=== PATIENT | female | born 1970 | race Caucasian/White ===

== ENCOUNTER 2016-08-23 15:04 | Emergency (ER) | payer BC ==
[2016-08-23 15:52] VITALS: BP 159/73
[2016-08-23] MEDS ORDERED: Ketorolac 60 MG/2 ML SDV IM ONE (16:36)
[2016-08-23] MEDS ORDERED: Acetaminophen 325 MG Tab PO ONE (16:36)
[2016-08-23] MEDS ORDERED: Lidocaine 1% 50 ML MDV INJECT ONE (16:57)
--- NOTE | 2016-08-23 17:52 | EDM.PDOC ---
ED HPI GENERAL MEDICAL PROBLEM - General Chief Complaint: Skin Complaint Stated Complaint: ABSCESS ON THIGH Time Seen by Provider: 08/23/16 16:25 Source of Information: Reports: Patient, RN Notes Reviewed - History of Present Illness INITIAL COMMENTS - FREE TEXT/NARRATIVE: Patient presents with abscess right groin. This started 3-4 days ago. Area of erythema and swelling has been increasing along with increased discomfort. She did have some slight drainage earlier today but nothing significant she has had other "cysts or abscess" drain other areas in the past. She is not diabetic. No fever or chills Right Groin Pain Score (Numeric/FACES): 6 - Related Data Allergies Allergy/AdvReac Type Severity Reaction Status Date / Time Sulfa (Sulfonamide Allergy Severe Swelling Verified 08/23/16 15:47 Antibiotics) amoxicillin [Amoxicillin] Allergy Intermediate Rash Verified 08/23/16 15:47 ciprofloxacin Allergy Intermediate Rash Verified 08/23/16 15:47 Home Meds: Home Meds Nitrofurantoin Monohyd/M-Cryst [Macrobid 100 mg Capsule] 100 mg PO BID #13 capsule 11/07/15 [Rx] Ondansetron [Zofran ODT] 4 mg PO Q8H #8 tab.dis 11/07/15 [Rx] Past Medical History HEENT History: Reports: Impaired Vision Respiratory History: Reports: Sleep Apnea Genitourinary History: Reports: UTI, Recurrent, Other (See Below) Other Genitourinary History: cysts on kidneys Musculoskeletal History: Reports: Arthritis Other Musculoskeletal History: Patient states she has some type of joint pain Dermatologic History: Reports: Other (See Below) Other Dermatologic History: abscesses - Infectious Disease History Infectious Disease History: Reports: Mumps - Past Surgical History HEENT Surgical History: Reports: None GI Surgical History: Reports: Cholecystectomy Musculoskeletal Surgical History: Reports: Carpal Tunnel Social & Family History - Family History Family Medical History: Noncontributory - Tobacco Use Smoking Status *Q: Never Smoker Second Hand Smoke Exposure: No - Caffeine Use Caffeine Use: Reports: Soda - Alcohol Use Days Per Week of Alcohol Use: 0 - Recreational Drug Use Recreational Drug Use: No - Living Situation & Occupation Living situation: Reports: , with Spouse Occupation: Employed ED ROS GENERAL - Review of Systems Review Of Systems: See Below Constitutional: Denies: Fever, Chills HEENT: Reports: No Symptoms Respiratory: Reports: No Symptoms Cardiovascular: Reports: No Symptoms GI/Abdominal: Denies: Nausea, Vomiting Skin: Reports: Erythema (area of developing abcess R groin) Neurological: Denies: Numbness, Tingling ED EXAM, SKIN/RASH Exam: See Below General Appearance: Alert, No Apparent Distress Respiratory/Chest: No Respiratory Distress Cardiovascular: Regular Rate, Rhythm Extremities: Redness (small abcess developing R groing about, 3 cm, starting to come to a head center of abcess, no active drainage). No: Leg Pain Neurological: Alert, No Motor/Sensory Deficits Skin: Warm, Normal Color, Other (skin is otherwise clear) ED SKIN PROCEDURES - I&D Site: R groin Skin prep: Providone-Iodine (Betadine) Local anesthesia: Lidocaine: 1% Plain Area Incised With: 11 Blade Drainage: Purulent, Small Amount Sterile Dressinx4(s) Complications: No Course - Vital Signs Last Recorded V/S: Last Vital Signs Temp 98.2 F 08/23/16 15:48 Pulse 84 08/23/16 15:48 Resp 14 08/23/16 15:48 BP 159/73 H 08/23/16 15:48 Pulse Ox 97 08/23/16 15:48 - Orders/Labs/Meds Meds: Medications Discontinued Medications Generic Name Dose Route Start Last Admin Trade Name Sergei PRMathew Reason Stop Dose Admin Acetaminophen 975 mg 08/23/16 16:36 08/23/16 16:49 Tylenol PO 08/23/16 16:37 975 mg NOW ONE Administration Ketorolac Tromethamine 60 mg 08/23/16 16:36 08/23/16 16:51 Toradol IM 08/23/16 16:37 60 mg ONETIME ONE Administration Lidocaine HCl 50 ml 08/23/16 16:57 08/23/16 17:04 Xylocaine 1% INJECT 08/23/16 16:58 50 ml ONETIME ONE Administration Departure - Departure Time of Disposition: 17:50 Disposition: Home, Self-Care 01 Condition: fair Clinical Impression: Abscess - Discharge Information Instructions: Abscess Referrals: Jennyfer Mcgee [employer] [Primary Care Provider] - Forms: ED Department Discharge Additional Instructions: Warm compresses at least 4 times daily to area of abscess right groin, doxycycline antibiotic as prescribed, if this closes over and looks like it needs further drainage go ahead and open it carefully with a razor blade if you' re comfortable doing that or otherwise see medical provider as needed, this should gradually get better over the next 3-5 days, see medical provider in followup if symptoms worsening, especially at the area of redness seems to be spreading out over a much larger area, or if you start having fever, chills or otherwise becoming more ill
== END 2016-08-23 18:20 | disposition home or self-care (01) ==
LOC: JD.ED 15:04
DX: L02.214 Cutaneous abscess of groin (principal); Z90.49 Acquired absence of other specified parts of digestive tract; Z98.890 Other specified postprocedural states; Z88.1 Allergy status to other antibiotic agents; Z88.2 Allergy status to sulfonamides
CPT/HCPCS: 10060; 96372; 99283; A9270; J1885

== ENCOUNTER 2018-06-05 04:24 | Emergency (ER) | payer BC ==
[2018-06-05 04:36] VITALS: BP 159/88
--- NOTE | 2018-06-05 04:43 | EDM.PDOC ---
ED HPI GENERAL MEDICAL PROBLEM - General Chief Complaint: Respiratory Problem Stated Complaint: CONGESTION/SOB Time Seen by Provider: 06/05/18 04:42 Source of Information: Reports: Patient History Limitations: Reports: No Limitations - History of Present Illness INITIAL COMMENTS - FREE TEXT/NARRATIVE: 48-year-old female presents the ED due to awakening from sleep with severe dyspnea or choking sensation like she could not get her breath. Illness started Wednesday while at work. On she had diffuse aching and development of productive cough. She is aware of some nasal congestion and postnasal drip as well. Throat was been very sore for the last 3-4 days. Intermittent low-grade fever and chills. She did have a flu shot this year. Appetite has been very poor the last couple of days. Take Wednesday off of work and has rested for the last 2 days. O2 sats are 99% on room air. She is in no respiratory distress at present. Onset: Today Onset Date: 06/05/18 Onset Time: 04:00 Duration: Minutes: Location: Reports: Chest (Does have a paroxysmal cough.), Generalized ( Generalized myalgia. Hot and cold sensations.), Other (Very sore throat.) Quality: Reports: Other Severity: Moderate (Throat is sharp stabbing burning pain with swallowing) Improves with: Reports: Medication (Excedrin seems to work the best for pain control.) Worsens with: Reports: None Context: Denies: Activity, Exercise, Lifting, Sick Contact, Trauma, Other Associated Symptoms: Reports: Cough, cough w sputum, Diaphoresis, Fever/Chills, Loss of Appetite, Shortness of Breath, Other (Awoke with choking sensation in her throat I believe due to postnasal drip.). Denies: No Other Symptoms, Confusion, Chest Pain, Headaches, Malaise, Nausea/Vomiting, Rash, Seizure, Syncope Treatments [employer]ER: Reports: Other (see below) Throat Pain Score (Numeric/FACES): 8 - Related Data Allergies Allergy/AdvReac Type Severity Reaction Status Date / Time Sulfa (Sulfonamide Allergy Severe Swelling Verified 06/05/18 04:32 Antibiotics) amoxicillin [Amoxicillin] Allergy Intermediate Rash Verified 06/05/18 04:32 ciprofloxacin Allergy Intermediate Rash Verified 06/05/18 04:32 Home Meds: Home Meds Cholecalciferol (Vitamin D3) [Vitamin D3] 1,000 unit PO DAILY 06/05/18 [History] Colestipol [Colestipol HCl] 1 gm PO DAILY 06/05/18 [History] Hydrocodone/Chlorphen P-Stirex [Tussionex Pennkinetic Susp] 5 ml PO Q12H PRN # 60 ml 06/05/18 [Rx] Hydroxychloroquine Sulfate [Plaquenil] 200 mg PO DAILY 06/05/18 [History] Ibuprofen 200 mg PO ONCALL PRN 06/05/18 [History] Loratadine/Pseudoephedrine [Claritin-D 24 Hour Tablet] 1 each PO DAILY #5 tab.er.24h 06/05/18 [Rx] Mirabegron [Myrbetriq] 25 mg PO DAILY 06/05/18 [History] Past Medical History HEENT History: Reports: Impaired Vision Respiratory History: Reports: Sleep Apnea Gastrointestinal History: Reports: Inflammatory Bowel Disease Genitourinary History: Reports: UTI, Recurrent, Other (See Below) Other Genitourinary History: cysts on kidneys Musculoskeletal History: Reports: Arthritis Other Musculoskeletal History: Patient states she has some type of joint pain Dermatologic History: Reports: Other (See Below) Other Dermatologic History: abscesses - Infectious Disease History Infectious Disease History: Reports: Mumps - Past Surgical History HEENT Surgical History: Reports: None GI Surgical History: Reports: Cholecystectomy Musculoskeletal Surgical History: Reports: Carpal Tunnel Social & Family History - Family History Family Medical History: Noncontributory - Tobacco Use Smoking Status *Q: Never Smoker - Caffeine Use Caffeine Use: Reports: Soda - Recreational Drug Use Recreational Drug Use: No - Living Situation & Occupation Living situation: Reports: , with Spouse Occupation: Employed [facility] [employer] GENERAL - Review of Systems Review Of Systems: See Below Constitutional: Reports: Fever, Chills, Malaise, Weakness, Fatigue, Decreased Appetite, Weight Loss HEENT: Reports: Glasses, Throat Pain Respiratory: Reports: Shortness of Breath, Cough, Sputum. Denies: Wheezing, Pleuritic Chest Pain, Hemoptysis, Other (Sputum mostly pinkish in color) Cardiovascular: Reports: Chest Pain (From coughing so much.), Dyspnea on Exertion. Denies: Blood Pressure Problem, Claudication (Blood pressure is elevated at present 160/88.), Edema, Lightheadedness, Orthopnea Endocrine: Reports: Fatigue GI/Abdominal: Reports: Decreased Appetite : Reports: No Symptoms Musculoskeletal: Reports: Muscle Pain Skin: Reports: No Symptoms Neurological: Reports: Dizziness, Weakness. Denies: Headache, Paresthesia, Pre- Existing Deficit, Seizure, Syncope, Tremors, Trouble Speaking, Difficulty Walking Psychiatric: Reports: No Symptoms Hematologic/Lymphatic: Reports: No Symptoms Immunologic: Reports: No Symptoms ED EXAM, GENERAL - Physical Exam Exam: See Below Exam Limited By: No Limitations General Appearance: Alert, WD/WN, No Apparent Distress, Other (She does feel quite warm to palpation and her shirt is soaked with sweat.) Eye Exam: Bilateral Eye: Normal Inspection Ears: Normal TMs Nose: Nasal Drainage Throat/Mouth: Normal Inspection, Normal Lips, Normal Teeth, Normal Oropharynx Head: Atraumatic, Normocephalic Neck: Normal Inspection, Supple, Non-Tender, Full Range of Motion. No: Lymphadenopathy (L), Lymphadenopathy (R) Respiratory/Chest: Lungs Clear, Normal Breath Sounds, Chest Non-Tender, Other ( Does have a mildly productive sounding cough.) Cardiovascular: Normal Peripheral Pulses, Regular Rate, Rhythm, No Edema, No Gallop, No Murmur, No Rub Peripheral Pulses: 3+: Posterior Tibial (L), Posterior Tibial (R), Dorsalis Pedis (L), Dorsalis Pedis (R) GI/Abdominal: Normal Bowel Sounds, Soft, Non-Tender, No Organomegaly, No Abnormal Bruit, No Mass, Pelvis Stable Extremities: Normal Inspection, Normal Range of Motion, Non-Tender, No Pedal Edema Neurological: Alert, Oriented, CN II-XII Intact, Normal Cognition Psychiatric: Normal Affect, Normal Mood Skin Exam: Warm, Dry, Intact, Normal Color, No Rash Course - Vital Signs Last Recorded V/S: Last Vital Signs Temp 36.5 C 06/05/18 04:33 Pulse 94 06/05/18 04:33 Resp 18 06/05/18 04:33 BP 159/88 H 06/05/18 04:33 Pulse Ox 96 06/05/18 05:05 - Orders/Labs/Meds Orders: Active Orders 24 hr Category Date Time Status RT Aerosol Therapy [RC] ASDIRECTED Care 06/05/18 04:50 Active Chest 1V Frontal [CR] Stat Exams 06/05/18 04:49 Taken Meds: Medications Discontinued Medications Generic Name Dose Route Start Last Admin Trade Name Sergei PRN Reason Stop Dose Admin Acetaminophen 975 mg 06/05/18 04:50 06/05/18 04:58 Tylenol PO 06/05/18 04:51 975 mg NOW ONE Administration Albuterol/Ipratropium 3 ml 06/05/18 04:50 06/05/18 05:01 Duoneb 3.0-0.5 Mg/3 Ml NEB 06/05/18 04:51 3 ml ONETIME ONE Administration - Radiology Interpretation Free Text/Narrative:: 48-year-old female presents the ED after wakening from sleep with a sudden feeling like she could not get her breath a choking sensation. She's been ill with upper respiratory tract infection symptoms with very sore throat some nasal congestion and postnasal drip as well as development of a paroxysmal productive cough. Mild generalized myalgia. No significant headache. Decreased appetite. Therefore she has some of the signs and symptoms of influenza. She did have an influenza shot. Good air entry to both lung alvarado. Throat although very sore shows no evidence of marked erythema or exudate. She does have a bit of a postnasal drip. Plan influenza screen one view chest x-ray to be done Tylenol 975 mg by mouth and DuoNeb to be given. - Re-Assessments/Exams Free Text/Narrative Re-Assessment/Exam: 06/05/18 06:00: Chest x-ray done portably shows no signs of pneumonia. Influenza screen is positive for the type A virus. Patient advised. She will be off work until next week since she is contagious to others for up to week from the time she developed symptoms. I have placed her Arnie on prophylaxis Tamiflu 75 mg once daily. She is outside the therapeutic window for Tamiflu and will have to get through this on her own. She has nearly 4 days into her illness at this time. Prescription written for Claritin-D 24-hour release once daily every morning for the next 5 days to help with postnasal drip and sinus congestion. After will be Tussionex 5 mils every 12 hours as needed for cough relief. 60 mils provided. She will continue Tylenol or Motrin 600 mg every 6 hours for fever and for body aches. Departure - Departure Time of Disposition: 06:11 Disposition: Home, Self-Care 01 Condition: Fair Clinical Impression: Influenza A, Postnasal drip - Discharge Information *PRESCRIPTION DRUG MONITORING PROGRAM REVIEWED*: Not Applicable *COPY OF PRESCRIPTION DRUG MONITORING REPORT IN PATIENT DIANA: Not Applicable Prescriptions: Hydrocodone/Chlorphen P-Stirex [Tussionex Pennkinetic Susp] 5 ml PO Q12H PRN # 60 ml PRN Reason: cough relief Loratadine/Pseudoephedrine [Claritin-D 24 Hour Tablet] 1 each PO DAILY #5 tab.er.24h Instructions: Influenza, Adult, [id number] Referrals: Usha Fletcher [facility] [Primary Care Provider] - Forms: ED Department Discharge, ED Return to Work/School Form Additional Instructions: Evaluation the emergency room this morning in regards to awakening from sleep with difficulty breathing. By history it sounds like he went into laryngospasm which means fluid was trying to get down into your airway and the larynx went into spasm to protected. By history you have been ill for the last 4 days paroxysmal cough decreased appetite. Associated very sore throat. This has been an issue with some patients with influenza A. Patient of the throat showed a bit of a postnasal drip but no active infection in the throat itself. Rest x- ray reveals no sign of pneumonia. You did test positive for influenza A type virus. Since infection started on you are outside the treatment parameters for Tamiflu. Influenza A will usually last about 4-1/2 days in terms of fever bodyaches headache. Cough can last up to 14 days. I suspect she will improve by tomorrow night with improved appetite etc. His proposed treatment to be Claritin-D 24-Hour release once daily every morning for the next 5 days to help with postnasal drip. Ideally should be taken first thing in the morning. If you can pick it up at 12:00 today I would take one right away. May use cough syrup Tussionex 5 mils every 12 hours as needed for cough relief. Plan on taking about an hour before going to bed as it takes an hour to work. You're considered contagious to others for a week from the time you develop symptoms. This means you should be off work until this coming week. - My Orders Last 24 Hours: My Active Orders 06/05/18 04:49 Chest 1V Frontal [CR] Stat 06/05/18 04:50 RT Aerosol Therapy [RC] ASDIRECTED - Assessment/Plan Last 24 Hours: My Active Orders 06/05/18 04:49 Chest 1V Frontal [CR] Stat 06/05/18 04:50 RT Aerosol Therapy [RC] ASDIRECTED
[2018-06-05] MEDS ORDERED: Acetaminophen 325 MG Tab PO ONE (04:50)
[2018-06-05] MEDS ORDERED: Albuterol/Ipratropium 3.0-0.5 MG/3 ML Neb Soln NEB ONE (04:50)
--- NOTE | 2018-06-05 07:08 | CR ---
Chest: Portable view of the chest was obtained. Comparison: Prior chest x-ray of 01/29/11. Heart size and mediastinum are normal. Lungs are clear with no acute parenchymal change. Surgical clips are noted from prior cholecystectomy. Impression: 1. Nothing acute is appreciated on portable chest x-ray. Diagnostic code #1
== END 2018-06-05 06:32 | disposition home or self-care (01) ==
LOC: JD.ED 04:24
DX: J10.1 Influenza due to other identified influenza virus with other respiratory manifestations (principal); R09.82 Postnasal drip; Z88.2 Allergy status to sulfonamides; Z88.1 Allergy status to other antibiotic agents; Z79.899 Other long term (current) drug therapy
CPT/HCPCS: 71045; 87804; 94640; 99284; A9270; 99283; J7620-GY

== ENCOUNTER 2018-11-24 15:40 | Emergency (ER) | payer BC ==
[2018-11-24 15:53] VITALS: BP 157/92
[2018-11-24] MEDS ORDERED: LORazepam 2 MG/ML SDV IVPUSH ONE (16:42)
[2018-11-24] MEDS ORDERED: Sodium Chloride 0.9% 1,000 ML IV SCH (16:45)
[2018-11-24] MEDS ORDERED: Ketorolac 30 MG/ML SDV IVPUSH SCH (16:45)
--- NOTE | 2018-11-24 16:46 | EDM.PDOC ---
ED HPI GENERAL MEDICAL PROBLEM - General Chief Complaint: Cardiovascular Problem Stated Complaint: CHEST PAIN Time Seen by Provider: 11/24/18 16:41 Source of Information: Reports: Patient History Limitations: Reports: No Limitations - History of Present Illness INITIAL COMMENTS - FREE TEXT/NARRATIVE: 48-year-old female presents to the ED with diffuse pain in her upper back neck pain now radiating to the left side of her jaw intermittently and down her left arm particular medial aspect of the arm and proximal volar forearm. He's had pains like this in the past but never into her jaw. She's been struggling with diffuse muscular skeletal pain in her back and perhaps some Tums and her anterior chest for the last several months. She was seen by the chiropractor today who felt that he didn't find anything that needed to be significantly adjusted. Concern about her heart and suggested that she seek local care. He has had previous cardiac workups which did not use the yield any positive findings. Pain comes and goes and is very sharp and stabbing and seems to be more muscular skeletal spasm. This of course is creating some degree of anxiety as well. Patient takes Motrin or Advil when necessary for musculoskeletal pain. Onset: Other (Has been having intermittent problems with her back neck and chest off and on for the last couple of months. Today after chiropractic minute ablation develop more pain in her left jaw and rating down her left arm which was new for her. He advised her to seek a medical consultation. Pain is intermittent sharp stabbing and appears to be spastic in origin.) Onset Date: 11/24/18 (Pain left jaw left arm today. Pain in her back neck and chest wall for several months off and on.) Duration: Hour(s):, Getting Worse, Intermittent, Waxing/Waning Location: Reports: Chest (Left precordial chest pain.), Upper Extremity, Left ( Some pain lately rating into her left medial arm and proximal volar forearm. Pain in her left upper back and neck.) Quality: Reports: Ache, Sharp (Intermittent sharp stabbing and spastic.), Stabbing, Other Severity: Moderate Improves with: Reports: None (Sometimes 8 out of 10.) Worsens with: Reports: None Context: Denies: Activity, Exercise, Lifting, Sick Contact, Trauma, Other Associated Symptoms: Reports: Chest Pain. Denies: No Other Symptoms, Confusion (Left precordial chest pain comes and goes), Cough, cough w sputum, Diaphoresis , Fever/Chills, Headaches, Loss of Appetite, Malaise, Nausea/Vomiting, Rash, Seizure, Shortness of Breath, Syncope, Weakness Treatments [employer]: Reports: NSAIDS (Advil.) Bilateral Upper Back Pain Score (Numeric/FACES): 8 - Related Data Allergies Allergy/AdvReac Type Severity Reaction Status Date / Time Sulfa (Sulfonamide Allergy Severe Swelling Verified 11/24/18 15:53 Antibiotics) amoxicillin [Amoxicillin] Allergy Intermediate Rash Verified 11/24/18 15:53 ciprofloxacin Allergy Intermediate Rash Verified 11/24/18 15:53 Home Meds: Home Meds Cholecalciferol (Vitamin D3) [Vitamin D3] 1,000 unit PO DAILY 06/05/18 [History] Colestipol [Colestipol HCl] 1 gm PO DAILY 06/05/18 [History] Hydroxychloroquine Sulfate [Plaquenil] 400 mg PO DAILY 06/05/18 [History] Ibuprofen 200 mg PO ONCALL PRN 06/05/18 [History] Loratadine/Pseudoephedrine [Claritin-D 24 Hour Tablet] 1 each PO DAILY #5 tab.er.24h 06/05/18 [Rx] Mirabegron [Myrbetriq] 25 mg PO DAILY 06/05/18 [History] Meloxicam 15 mg PO DAILY #30 tablet 11/24/18 [Rx] Multivitamin [Multivitamins] 1 each PO DAILY 11/24/18 [History] Potassium Chloride 30 meq PO DAILY 11/24/18 [History] Past Medical History HEENT History: Reports: Impaired Vision Cardiovascular History: Reports: None Respiratory History: Reports: Sleep Apnea Gastrointestinal History: Reports: Inflammatory Bowel Disease Genitourinary History: Reports: UTI, Recurrent, Other (See Below) Other Genitourinary History: cysts on kidneys RHIT History: Reports: None Musculoskeletal History: Reports: Arthritis Other Musculoskeletal History: Patient states she has some type of joint pain-- she is on Plaquenil for this. Unclear if this is seronegative rheumatoid arthritis. Neurological History: Reports: None Psychiatric History: Reports: Anxiety Endocrine/Metabolic History: Reports: None Hematologic History: Reports: None Immunologic History: Reports: None Oncologic (Cancer) History: Reports: None Dermatologic History: Reports: Other (See Below) Other Dermatologic History: abscesses - Infectious Disease History Infectious Disease History: Reports: Mumps - Past Surgical History Head Surgeries/Procedures: Reports: None HEENT Surgical History: Reports: None GI Surgical History: Reports: Cholecystectomy Musculoskeletal Surgical History: Reports: Carpal Tunnel Social & Family History - Family History Family Medical History: Noncontributory - Tobacco Use Smoking Status *Q: Never Smoker - Caffeine Use Caffeine Use: Reports: Soda - Recreational Drug Use Recreational Drug Use: No - Living Situation & Occupation Living situation: Reports: , with Spouse Occupation: Employed ED ROS GENERAL - Review of Systems Review Of Systems: See Below Constitutional: Denies: Fever, Chills, Malaise, Weakness, Fatigue, Decreased Appetite, Weight Loss HEENT: Reports: Glasses Respiratory: Reports: Other. Denies: Shortness of Breath, Wheezing, Cough, Sputum Cardiovascular: Reports: Chest Pain, Blood Pressure Problem. Denies: Claudication, Dyspnea on Exertion, Edema, Lightheadedness, Orthopnea (Elevated today but not usually.), Palpitations Endocrine: Reports: Fatigue GI/Abdominal: Reports: No Symptoms : Reports: No Symptoms Musculoskeletal: Reports: Neck Pain (Chronically), Back Pain Skin: Reports: No Symptoms (Upper thoracic back pain chronically. Occasional low back pain.) Neurological: Reports: No Symptoms Psychiatric: Reports: No Symptoms Hematologic/Lymphatic: Reports: No Symptoms Immunologic: Reports: No Symptoms ED EXAM, GENERAL - Physical Exam Exam: See Below Exam Limited By: No Limitations General Appearance: Alert, WD/WN, Moderate Distress (Intermittently gets very sharp stabbing spastic type pain mostly in her left upper back and radiates into her left jaw and left arm. Not constant but comes and goes) Eye Exam: Bilateral Eye: Normal Fundi Neck: Normal Inspection, Supple, Non-Tender, Full Range of Motion. No: Carotid Bruit, Lymphadenopathy (L), Lymphadenopathy (R) Respiratory/Chest: No Respiratory Distress, Lungs Clear, Normal Breath Sounds, No Accessory Muscle Use, Other (Marked chest wall tenderness on examination but particularly ribs 3,4 and 5 on the right guerita and ribs 2-7 on the left side particularly ribs 2-3 and 4 and 5 in the midclavicular line. She appears to have a significant inflammation of the rib lining or periosteum. ) Cardiovascular: Normal Peripheral Pulses, Regular Rate, Rhythm, No Edema, No Gallop, No Murmur, No Rub Peripheral Pulses: 3+: Posterior Tibial (L), Posterior Tibial (R), Dorsalis Pedis (L), Dorsalis Pedis (R) GI/Abdominal: Normal Bowel Sounds, Soft, Non-Tender, No Organomegaly, No Abnormal Bruit, No Mass, Pelvis Stable Back Exam: Normal Inspection, Full Range of Motion, Other (I found no localized muscle spasm or rib head subluxation). No: CVA Tenderness (L), CVA Tenderness ( R) Extremities: Normal Inspection ( in the thoracic spine.), Normal Range of Motion , Other (Normal pulses to the wrist i.e. ulnar and radial on the left side.) Neurological: Alert, Oriented, CN II-XII Intact, Normal Cognition, Normal Gait Psychiatric: Anxious Skin Exam: Warm, Dry (Mildly anxious), Intact, Normal Color, No Rash EKG INTERPRETATION EKG Date: 11/24/18 Time: 16:23 Rhythm: NSR Rate (Beats/Min): 72 [place]: Normal P-Wave: Present QRS: Normal ST-T: Normal QT: Prolonged (Minimally prolonged) EKG Interpretation Comments: Borderline ECG Course - Vital Signs Last Recorded V/S: Last Vital Signs Temp 36.4 C 11/24/18 15:49 Pulse 90 11/24/18 15:49 Resp 18 11/24/18 15:49 BP 157/92 H 11/24/18 15:49 Pulse Ox 100 11/24/18 15:49 - Orders/Labs/Meds Orders: Active Orders 24 hr Category Date Time Status EKG 12 Lead [EKG Documentation Completion] [RC] ROUTINE Care 11/24/18 16:22 Active Chest 1V Frontal [CR] Stat Exams 11/24/18 16:47 Taken Ketorolac [Toradol] Med 11/24/18 16:45 Active 30 mg IVPUSH ONETIME Sodium Chloride 0.9% [Normal Saline] 1,000 ml Med 11/24/18 16:45 Active IV ASDIRECTED Medication Orders Sodium Chloride (Normal Saline) 1,000 mls @ 125 mls/hr IV ASDIRECTED YINKA Last Admin: 11/24/18 17:20 Dose: 125 mls/hr Ketorolac Tromethamine (Toradol) 30 mg IVPUSH ONETIME YINKA Last Admin: 11/24/18 17:20 Dose: 30 mg Labs: Laboratory Tests 11/24/18 11/24/18 Range/Units 17:10 17:10 WBC 9.59 (3.98-10.04) K/mm3 RBC 4.68 (3.98-5.22) M/mm3 Hgb 13.2 (11.2-15.7) gm/L Hct 40.1 (34.1-44.9) % MCV 85.7 (79.4-94.8) fl MCH 28.2 (25.6-32.2) pg MCHC 32.9 (32.2-35.5) g/dl RDW Std Deviation 39.2 (36.4-46.3) fL Plt Count 301 (182-369) K/mm3 MPV 9.8 (9.4-12.3) fl Neut % (Auto) 69.8 (34.0-71.1) % Lymph % (Auto) 20.3 (19.3-51.7) % [place] % (Auto) 8.1 (4.7-12.5) % Eos % (Auto) 1.4 (0.7-5.8) Baso % (Auto) 0.2 (0.1-1.2) % Neut # (Auto) 6.69 H (1.56-6.13) K/mm3 Lymph # (Auto) 1.95 (1.18-3.74) K/mm3 [place] # (Auto) 0.78 H (0.24-0.36) K/mm3 Eos # (Auto) 0.13 (0.04-0.36) K/mm3 Baso # (Auto) 0.02 (0.01-0.08) K/mm3 Sodium 141 (136-145) mEq/L Potassium 3.2 L (3.5-5.1) mEq/L Chloride 100 (98-107) mEq/L Carbon Dioxide 30 (21-32) mEq/L Anion Gap 14.2 (5-15) BUN 16 (7-18) mg/dL Creatinine 1.0 (0.55-1.02) mg/dL Est Cr Clr Drug Dosing 58.12 mL/min Estimated GFR (MDRD) 59 (>60) mL/min BUN/Creatinine Ratio 16.0 (14-18) Glucose 95 (74-106) mg/dL Calcium 9.6 (8.5-10.1) mg/dL Magnesium 2.1 (1.8-2.4) mg/dl Total Bilirubin 0.3 (0.2-1.0) mg/dL AST 25 (15-37) U/L ALT 32 (14-59) U/L Alkaline Phosphatase 143 H (46-116) U/L C-Reactive Protein 1.5 H* (<1.0) mg/dL Total Protein 7.8 (6.4-8.2) g/dl Albumin 3.8 (3.4-5.0) g/dl Globulin 4.0 gm/dL Albumin/Globulin Ratio 1.0 (1-2) Meds: Medications Generic Name Dose Route Start Last Admin Trade Name Freq PRN Reason Stop Dose Admin Sodium Chloride 1,000 mls @ 125 mls/hr 11/24/18 16:45 11/24/18 17:20 Normal Saline IV 125 mls/hr ASDIRECTED YINKA Administration Ketorolac Tromethamine 30 mg 11/24/18 16:45 11/24/18 17:20 Toradol IVPUSH 30 mg ONETIME YINKA Administration Discontinued Medications Generic Name Dose Route Start Last Admin Trade Name Freq PRN Reason Stop Dose Admin Lorazepam 0.5 mg 11/24/18 16:42 11/24/18 17:21 Ativan IVPUSH 11/24/18 16:43 0.5 mg ONETIME ONE Administration - Radiology Interpretation Free Text/Narrative:: 48-year-old female presents to the ED with diffuse corneal chest discomfort and pain in her left upper back rating up occasionally and her left mandible and jaw and into her left arm particularly medially and into the proximal forearm. Pain tends to be spastic and sharp and stabbing and is clearly musculoskeletal in origin. ECG done which shows sinus rhythm with no signs of ischemia. Wall tenderness elicited from ribs 2-7 on the left side and ribs 2-5 on the right side. Mild bicipital tendinitis on the short head left shoulder and pain at the insertion of tendons and to the coracoid process. Routine labs will be obtained. I will give her Toradol 30 mg IV. Normal saline at 150 mils per hour. We'll give her Ativan 0.5 mg IV as well. - Re-Assessments/Exams Free Text/Narrative Re-Assessment/Exam: 11/24/18 17:54 Labs are back revealing normal white count at 9.59. Automated differential is 70% neutrophils. Hemoglobin is 13.2 with hematocrit of 40.1. Platelet counts 301,000. Sodium 141 with potassium slightly low at 3.2. Port 100 with a bicarbonate 30. Anion gap is 14.2. B you and is 16 with a creatinine of 1.0. Blood sugar is 95. Calcium is 9.6. Magnesium is 2.1. Liver function is normal. Alkaline phosphatase slightly elevated 143. C-reactive protein is 1.5. Total protein is 7.8 with an albumin fraction of 3.8. Chest x-ray reveals normal cardiac silhouette and clear lung alvarado. 11/24/18 18:00: Discussed the findings with the patient. No evidence of cardiac related illness. Is evidence of left bicipital tendinitis on the short head insertion site as well as pain on the coracoid process from insertion of the pectoralis minor tendons etc. Marked chest wall tenderness from inflammation of the periosteum more notable on the left side from ribs 2-7 which could be causing some referred pain to the left arm. I asked her to seek out a DEXA scan to see if she has early osteopenia/osteoporosis. Advised Julito Mag --600 mg tablet once daily to provide calcium supplementation and magnesium to prevent constipation from the calcium but also as a supplement as well. Is to trial of meloxicam 15 mg once daily with her largest meal for. Of a month to see if this alleviates a good portion of her Musca skeletal pain particularly bicipital tendinitis and tendinitis of the coracoid process area should also relieve a good portion of the inflammation around her ribs. She is already taking vitamin D supplement 4000 units daily. Her potassium was a little bit low at 3.2 and she is recent started on potassium supplement and therefore I did not advise increase at this time. Follow-up with her primary care provider in 30 days to see if is worthwhile continuing meloxicam on a daily basis. Departure - Departure Time of Disposition: 18:10 Disposition: Home, Self-Care 01 Condition: Fair Clinical Impression: Musculoskeletal pain, Anterior chest wall pain, Non-cardiac chest pain Prescriptions: Meloxicam 15 mg PO DAILY #30 tablet Referrals: Usha Fletcher NP [Primary Care Provider] - Forms: ED Department Discharge Additional Instructions: Evaluation in the emergency room this afternoon in regards to diffuse pain syndrome involving upper back neck left arm and left anterior chest with occasional pain radiating up into the left mandible or jaw. Concern arose as to whether or not this may be cardiac/heart in origin. There was therefore this suggests to the chiropractor that you seek medical attention. ECG proved to be normal in the ED. Chest x-ray was normal as well. Examination identified marked chest wall tenderness particularly ribs 2-7 on the left side and ribs 3-5 on the right side suggesting inflammation of the lining of the rib called the periosteum. Can be viral infection but it often is due to osteoporosis developing with leaching of calcium from underneath the periosteum of the ribs causing pain syndrome. Last under wire bra should not be worn. There is also pain at the insertion of the tendons into the coracoid process of your shoulder blade left upper anterior chest and some degree of bicipital tendinitis in the left shoulder. You were given Toradol 30 mg IV and Ativan 0.5 mg IV as a muscle relaxant. This seemed to give you some relief of the spastic type pain you are experiencing lab works proved to be completely normal other than a low slightly low potassium at 3.2. You have recently started a potassium supplement. Hasn't had a some point time you have a DEXA scan done to see if you are developing any osteopenia early osteoporosis. This could be ordered by her primary care physician. You're not quite consider menopausal since your last period was about 4 months ago. Consider menopausal after no period for one year. I suggest treatment with CalMag--600 mg tablet once daily to maintain calcium supplementation and magnesium is also sometimes useful to prevent muscle spasm and muscular skeletal pain but also prevents constipation that calcium often causes. Suggest a trial of anti-inflammatory called meloxicam 15 mg once daily with her largest meal for 30 days to see if it helps alleviate musculoskeletal pain. It should also alleviate inflammation of the biceps tendon and the tendons inserting anterior chest wall and shoulder blade. Follow-up with personal care physician months time to see whether or not there was enough benefit toward continuing this medication on a daily basis. - My Orders Last 24 Hours: My Active Orders 11/24/18 16:22 EKG 12 Lead [EKG Documentation Completion] [RC] ROUTINE 11/24/18 16:45 Ketorolac [Toradol] 30 mg IVPUSH ONETIME Sodium Chloride 0.9% [Normal Saline] 1,000 ml IV ASDIRECTED 11/24/18 16:47 Chest 1V Frontal [CR] Stat - Assessment/Plan Last 24 Hours: My Active Orders 11/24/18 16:22 EKG 12 Lead [EKG Documentation Completion] [RC] ROUTINE 11/24/18 16:45 Ketorolac [Toradol] 30 mg IVPUSH ONETIME Sodium Chloride 0.9% [Normal Saline] 1,000 ml IV ASDIRECTED 11/24/18 16:47 Chest 1V Frontal [CR] Stat
--- NOTE | 2018-11-25 09:10 | CR ---
Chest: Portable view of the chest was obtained. Comparison: Prior chest x-ray of 06/05/18. Heart size and mediastinum are within normal limits for portable technique. Lungs are clear. Bony structures are grossly intact. Surgical clips are seen from prior cholecystectomy. Impression: 1. Nothing acute is seen on portable chest x-ray. Diagnostic code #1
== END 2018-11-24 18:40 | disposition home or self-care (01) ==
LOC: JD.ED 15:40
DX: M54.6 Pain in thoracic spine (principal); R07.89 Other chest pain; M19.90 Unspecified osteoarthritis, unspecified site; Z88.2 Allergy status to sulfonamides; Z88.1 Allergy status to other antibiotic agents; Z79.899 Other long term (current) drug therapy
CPT/HCPCS: 36415; 71045; 80053; 83735; 85025; 86140; 93005; 96361; 96374; 96375; 99285; J1885; J2060; J7040

== ENCOUNTER 2020-03-10 07:36 | Emergency (ER) | payer BC, OTHER ==
[2020-03-10 07:51] VITALS: BP 167/76; PULSE 73
--- NOTE | 2020-03-10 08:03 | EDM.PDOC ---
ED HPI GENERAL MEDICAL PROBLEM - General Chief Complaint: Neck Problem Stated Complaint: [facility] Time Seen by Provider: 03/10/20 08:03 - History of Present Illness INITIAL COMMENTS - FREE TEXT/NARRATIVE: 50-year-old female presents the emergency room with neck pain shoulder pain and some intermittent chest pain. Patient has significant symptoms of neck problems with what sounds like left- sided radiculopathy. She has a diagnosis of disc disease in her neck. She is scheduled to have a MRI early this next week and follow-up with her primary care provider on Wednesday. Patient had a flare of worsening pain on the left side of her neck extending down into her arm this stops just above her elbow. She describes Pressure-like sensation around her upper arm. At times when she has these episodes gets chest pain and this morning she did have some sharp left- sided chest discomfort as well this did not last long and has resolved. She is not having any chest pain at this time this chest pain was not associated with any palpitations no breathing difficulties no shortness of breath no nausea no vomiting. When she has this pain it usually comes with spasms in her shoulder and arm that come and go. Patient states that when she has these flares it usually requires medication and physical therapy to get her better. The patient has had several episodes of chest pain associated with her neck problems. It h as been worked up in the past and from a cardiac standpoint is always been negative. 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 Left Upper Arm Pain Score (Numeric/FACES): 7 - Related Data Allergies Allergy/AdvReac Type Severity Reaction Status Date / Time Sulfa (Sulfonamide Allergy Severe Swelling Verified 03/10/20 07:51 Antibiotics) amoxicillin [Amoxicillin] Allergy Intermediate Rash Verified 03/10/20 07:51 ciprofloxacin Allergy Intermediate Rash Verified 03/10/20 07:51 Home Meds: Home Meds Cholecalciferol (Vitamin D3) [Vitamin D3] 1,000 unit PO DAILY 06/05/18 [History] Colestipol [Colestipol HCl] 1 gm PO DAILY 06/05/18 [History] Hydroxychloroquine Sulfate [Plaquenil] 400 mg PO DAILY 06/05/18 [History] Ibuprofen 200 mg PO ONCALL PRN 06/05/18 [History] Loratadine/Pseudoephedrine [Claritin-D 24 Hour Tablet] 1 each PO DAILY #5 tab.er.24h 06/05/18 [Rx] Mirabegron [Myrbetriq] 25 mg PO DAILY 06/05/18 [History] Meloxicam 15 mg PO DAILY #30 tablet 11/24/18 [Rx] Multivitamin [Multivitamins] 1 each PO DAILY 11/24/18 [History] Potassium Chloride 30 meq PO DAILY 11/24/18 [History] Cyclobenzaprine [Flexeril] 10 mg PO ASDIRECTED #14 tab 03/10/20 [Rx] Past Medical History HEENT History: Reports: Impaired Vision Cardiovascular History: Reports: None Respiratory History: Reports: Sleep Apnea Gastrointestinal History: Reports: Inflammatory Bowel Disease Genitourinary History: Reports: UTI, Recurrent, Other (See Below) Other Genitourinary History: cysts on kidneys 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 Musculoskeletal History: Reports: Arthritis Other Musculoskeletal History: Patient states she has some type of joint pain Neurological History: Reports: None Psychiatric History: Reports: Anxiety Endocrine/Metabolic History: Reports: None Hematologic History: Reports: None Immunologic History: Reports: None Oncologic (Cancer) History: Reports: None Dermatologic History: Reports: Other (See Below) Other Dermatologic History: abscesses - Infectious Disease History Infectious Disease History: Reports: Mumps - Past Surgical History Head Surgeries/Procedures: Reports: None HEENT Surgical History: Reports: None GI Surgical History: Reports: Cholecystectomy Musculoskeletal Surgical History: Reports: Carpal Tunnel Social & Family History - Family History Family Medical History: No Pertinent Family History - Caffeine Use Caffeine Use: Reports: Soda - Living Situation & Occupation Living situation: Reports: , with Spouse Occupation: Employed ED ROS GENERAL - Review of Systems Review Of Systems: See Below Constitutional: Reports: No Symptoms HEENT: Reports: No Symptoms Respiratory: Reports: No Symptoms Cardiovascular: Reports: Chest Pain GI/Abdominal: Reports: No Symptoms : Reports: No Symptoms Musculoskeletal: Reports: Neck Pain, Shoulder Pain, Arm Pain Skin: Reports: No Symptoms Neurological: Reports: No Symptoms Psychiatric: Reports: No Symptoms ED EXAM, UPPER BACK/NECK PAIN - Physical Exam Exam: See Below Exam Limited By: No Limitations General Appearance: Alert, No Apparent Distress Head Exam: Atraumatic, Normocephalic Neck Exam: Non-Tender, Full Range of Motion, Normal Alignment, Normal Inspection, Muscle Spasm (Along the left paraspinous muscles this extends into the shoulder on the left). No: Spinous Processes Tender, Tender Midline Cardiovascular/Respiratory: Regular Rate, Rhythm, No M/R/G, Normal Breath Sounds, No Respiratory Distress GI/Abdominal: Normal Bowel Sounds, Soft, Non-Tender Extremities: Other (Tinel sign is negative on the left) Neurologic: Alert, Normal Mood/Affect, Oriented x 3 #1 Interpretation Rhythm: NSR [place]: Normal P-Wave: Present QRS: Normal ST-T: Normal QT: Normal Comparison: No Change (No significant change from 919) EKG Interpretation Comments: Normal nonacute EKG with artifact in aVR aVL aVF Course - Vital Signs Last Recorded V/S: Last Vital Signs Temp 36.8 C 03/10/20 07:48 Pulse 73 03/10/20 07:48 Resp 16 03/10/20 07:48 BP 167/76 H 03/10/20 07:48 Pulse Ox 98 03/10/20 07:48 - Orders/Labs/Meds Orders: Active Orders 24 hr Category Date Time Status EKG Documentation Completion [RC] STAT Care 03/10/20 08:12 Active Labs: Laboratory Tests 03/10/20 03/10/20 03/10/20 Range/Units 08:35 08:35 08:35 WBC 7.91 (3.98-10.04) K/mm3 RBC 4.44 (3.98-5.22) M/mm3 Hgb 12.6 (11.2-15.7) gm/dl Hct 38.9 (34.1-44.9) % MCV 87.6 (79.4-94.8) fl MCH 28.4 (25.6-32.2) pg MCHC 32.4 (32.2-35.5) g/dl RDW Std Deviation 40.5 (36.4-46.3) fL Plt Count 293 (182-369) K/mm3 MPV 9.5 (9.4-12.3) fl Neut % (Auto) 65.8 (34.0-71.1) % Lymph % (Auto) 23.1 (19.3-51.7) % [place] % (Auto) 8.7 (4.7-12.5) % Eos % (Auto) 2.0 (0.7-5.8) Baso % (Auto) 0.3 (0.1-1.2) % Neut # (Auto) 5.20 (1.56-6.13) K/mm3 Lymph # (Auto) 1.83 (1.18-3.74) K/mm3 [place] # (Auto) 0.69 H (0.24-0.36) K/mm3 Eos # (Auto) 0.16 (0.04-0.36) K/mm3 Baso # (Auto) 0.02 (0.01-0.08) K/mm3 PT 10.7 (9.7-12.0) SECONDS INR 1.00 APTT 26.8 (21.7-31.4) SECONDS Sodium 143 (136-145) mEq/L Potassium 3.7 (3.5-5.1) mEq/L Chloride 106 (98-107) mEq/L Carbon Dioxide 24 (21-32) mEq/L Anion Gap 16.7 H (5-15) BUN 14 (7-18) mg/dL Creatinine 1.2 H (0.55-1.02) mg/dL Est Cr Clr Drug Dosing 47.36 mL/min Estimated GFR (MDRD) 47 (>60) mL/min BUN/Creatinine Ratio 11.7 L (14-18) Glucose 100 (74-106) mg/dL Calcium 9.4 (8.5-10.1) mg/dL Total Bilirubin 0.3 (0.2-1.0) mg/dL AST 14 L (15-37) U/L ALT 24 (14-59) U/L Alkaline Phosphatase 136 H (46-116) U/L Troponin I < 0.017 (0.00-0.056) ng/mL Total Protein 7.1 (6.4-8.2) g/dl Albumin 3.6 (3.4-5.0) g/dl Globulin 3.5 gm/dL Albumin/Globulin Ratio 1.0 (1-2) Meds: Medications Discontinued Medications Generic Name Dose Route Start Last Admin Trade Name Freq PRN Reason Stop Dose Admin Aspirin 324 mg 03/10/20 08:12 03/10/20 08:41 Aspirin PO 03/10/20 08:13 324 mg ONETIME ONE Administration Cyclobenzaprine HCl 10 mg 03/10/20 08:30 12/20/20 08:41 Flexeril PO 03/10/20 08:31 10 mg ONETIME ONE Administration - Re-Assessments/Exams Free Text/Narrative Re-Assessment/Exam: 03/10/20 10:03 As expected laboratory evaluation is unremarkable troponin is normal no other marked abnormalities on her laboratory evaluation. Patient is doing better after getting a Flexeril. We will discharge home at this time. Departure - Departure Time of Disposition: 10:05 Disposition: Home, Self-Care 01 Clinical Impression: Chest pain, Cervical radiculopathy - Discharge Information Forms: ED Department Discharge Additional Instructions: Return to the emergency room with any questions problems or worsening symptoms. Continue using Tylenol as needed for discomfort. You been started on Flexeril, or cyclobenzaprine, this is a muscle relaxant. Take 1 3 times a day today and tomorrow then [address] or return to work within 12 hours of using this medication. Follow-up with your regular healthcare provider as scheduled on Wednesday and get your MRI done on Wednesday as scheduled. Sepsis Event Note (ED) - Evaluation Sepsis Screening Result: No Definite Risk - Focused Exam Vital Signs: Vital Signs Temp Pulse Resp BP Pulse Ox 03/10/20 07:48 36.8 C 73 16 167/76 H 98 - My Orders Last 24 Hours: My Active Orders 03/10/20 08:12 EKG Documentation Completion [RC] STAT - Assessment/Plan Last 24 Hours: My Active Orders 03/10/20 08:12 EKG Documentation Completion [RC] STAT
[2020-03-10] MEDS ORDERED: Aspirin 81 MG Tab.Chew PO ONE (08:12)
[2020-03-10] MEDS ORDERED: Cyclobenzaprine 10 MG Tab PO ONE (08:30)
== END 2020-03-10 10:45 | disposition home or self-care (01) ==
LOC: JD.ED 07:36
DX: M54.12 Radiculopathy, cervical region (principal); R07.89 Other chest pain; Z88.2 Allergy status to sulfonamides; Z88.0 Allergy status to penicillin; Z88.1 Allergy status to other antibiotic agents
CPT/HCPCS: 36415; 80053; 84484; 85025; 85610; 85730; 93005; 99285; A9270; 93010; 99284

== ENCOUNTER 2020-06-26 13:15 | Emergency (ER) | payer OTHER ==
[2020-06-26] MEDS ORDERED: Sodium Chloride 0.9% 10 ML Syringe FLUSH PRN (13:57)
[2020-06-26] MEDS ORDERED: Sodium Chloride 0.9% 1,000 ML IV ONE (13:57)
[2020-06-26] MEDS ORDERED: HYDROmorphone 0.5 MG/0.5 ML Syringe IVPUSH ONE ×2 (13:58→15:31)
[2020-06-26] MEDS ORDERED: Ondansetron 4 MG/2 ML SDV IVPUSH ONE (13:58)
--- NOTE | 2020-06-26 14:41 | CT ---
CT abdomen and pelvis Technique: Multiple axial sections were obtained from above the dome of the diaphragm inferiorly to the pubic symphysis. Intravenous and oral contrast was not utilized. Study has been performed as a ureteral stone protocol. Comparison: Prior CT abdomen and pelvis exam of 09/12/10. Findings: 5 mm stone is identified within the distal right ureter close to the UVJ. This causes mild right ureter dilatation. Kidneys show no abnormal calcifications. Left ureter appears within normal limits. Visualized lung bases show nothing acute. Noncontrast appearance of the liver shows no focal parenchymal abnormality. Spleen size is normal. Adrenal glands show no nodule or mass. Pancreas shows no focal abnormality. Prior cholecystectomy is noted with surgical clips. Abdominal aorta shows no aneurysm. No retroperitoneal adenopathy or mesenteric abnormalities are appreciated. Appendix is seen which is normal. No pelvic mass or adenopathy is seen. No free fluid or inflammatory change is appreciated. Bone window settings were reviewed which show mild scattered degenerative change. No acute osseous finding is appreciated. Impression: 1. Dilated right ureter caused by 5 mm stone within the distal ureter near the UVJ. 2. Other findings as noted above which are felt to be normal. Diagnostic code #3
--- NOTE | 2020-06-26 14:42 | EDM.PDOC ---
ED HPI GENERAL MEDICAL PROBLEM - General Chief Complaint: Flank Pain Stated Complaint: R SIDE PAIN/BACK PAIN Time Seen by Provider: 06/26/20 13:26 Source of Information: Reports: Patient History Limitations: Reports: No Limitations - History of Present Illness INITIAL COMMENTS - FREE TEXT/NARRATIVE: 50-year-old female presents to the emergency department with complaints of right flank pain. She states that when she first woke up this morning she felt okay. However as she was sitting on the side of the bed visiting with her she started to have slight discomfort in her right flank. She thought she was needing to have a bowel movement because she does have a history of IBS with diarrhea and she states that she thought this was similar to how she feels when she is needing to have a bowel movement. She attempted to have a bowel movement however was unable. And the pain progressively gotten worse. She describes it as a colicky type of pain in her right flank that wraps around and radiates down into her right groin. She states it is worse when she is laying in bed however better when she is up walking around. She denies any history of problems with voiding over the last couple of days. She denies any burning or frequency or hesitancy. She denies any recent fever, chills, nausea or vomiting she. She states that the right flank pain has become increasing in severity since it started this morning. She states she commonly has diarrhea due to her IBS. However, she states that she has had some frequent medication changes and has stopped taking her colestipol which has made her bowels more firm. She states she did have a normal bowel movement yesterday but has not had one yet today. She states she feels bloated. She also states she has a history of gout for which she takes allopurinol. Right Flank Pain Score (Numeric/FACES): 9 - Related Data Allergies Allergy/AdvReac Type Severity Reaction Status Date / Time Sulfa (Sulfonamide Allergy Severe Swelling Verified 06/26/20 13:26 Antibiotics) amoxicillin [Amoxicillin] Allergy Intermediate Rash Verified 06/26/20 13:26 ciprofloxacin Allergy Intermediate Rash Verified 06/26/20 13:26 Home Meds: Home Meds Cholecalciferol (Vitamin D3) [Vitamin D3] 1,000 unit PO DAILY 06/05/18 [History] Colestipol [Colestipol HCl] 1 gm PO DAILY 06/05/18 [History] Hydroxychloroquine Sulfate [Plaquenil] 400 mg PO DAILY 06/05/18 [History] Ibuprofen 200 mg PO ONCALL PRN 06/05/18 [History] Loratadine/Pseudoephedrine [Claritin-D 24 Hour Tablet] 1 each PO DAILY #5 tab.er.24h 06/05/18 [Rx] Mirabegron [Myrbetriq] 25 mg PO DAILY 06/05/18 [History] Meloxicam 15 mg PO DAILY #30 tablet 11/24/18 [Rx] Multivitamin [Multivitamins] 1 each PO DAILY 11/24/18 [History] Potassium Chloride 30 meq PO DAILY 11/24/18 [History] Cyclobenzaprine [Flexeril] 10 mg PO ASDIRECTED #14 tab 03/10/20 [Rx] Tamsulosin HCl [Flomax] 0.4 mg PO DAILY #10 cap.er.24h 06/26/20 [Rx] Tamsulosin HCl [Flomax] 0.4 mg PO DAILY #10 cap.er.24h 06/26/20 [Rx] oxyCODONE HCl/Acetaminophen [Percocet 5-325 mg Tablet] 1 each PO Q4H #20 tablet 06/26/20 [Rx] oxyCODONE HCl/Acetaminophen [Percocet 5-325 mg Tablet] 1 each PO Q4H #20 tablet 06/26/20 [Rx] Past Medical History HEENT History: Reports: Impaired Vision Cardiovascular History: Reports: None Respiratory History: Reports: Sleep Apnea Gastrointestinal History: Reports: Inflammatory Bowel Disease Genitourinary History: Reports: UTI, Recurrent, Other (See Below) Other Genitourinary History: cysts on kidneys 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 Musculoskeletal History: Reports: Arthritis, Gout Other Musculoskeletal History: Patient states she has some type of joint pain Neurological History: Reports: None Psychiatric History: Reports: Anxiety Endocrine/Metabolic History: Reports: None Hematologic History: Reports: None Immunologic History: Reports: None Oncologic (Cancer) History: Reports: None Dermatologic History: Reports: Other (See Below) Other Dermatologic History: abscesses - Infectious Disease History Infectious Disease History: Reports: Mumps - Past Surgical History Head Surgeries/Procedures: Reports: None HEENT Surgical History: Reports: None GI Surgical History: Reports: Cholecystectomy Musculoskeletal Surgical History: Reports: Carpal Tunnel Other Musculoskeletal Surgeries/Procedures:: cyst removed from tail bone Dermatological Surgical History: Reports: Other (See Below) Social & Family History - Family History Family Medical History: No Pertinent Family History - Tobacco Use Tobacco Use Status *Q: Never Tobacco User Second Hand Smoke Exposure: No - Caffeine Use Caffeine Use: Reports: Soda - Recreational Drug Use Recreational Drug Use: No - Living Situation & Occupation Living situation: Reports: , with Spouse Occupation: Employed ED ROS GENERAL - Review of Systems Review Of Systems: Comprehensive ROS is negative, except as noted in HPI. ED EXAM, RENAL/ - Physical Exam Exam: See Below Exam Limited By: No Limitations General Appearance: Alert, WD/WN, Moderate Distress Ears: Normal External Exam, Hearing Grossly Normal Nose: Normal Inspection Throat/Mouth: Normal Inspection, Normal Lips, Normal Voice, No Airway Compromise Head: Atraumatic, Normocephalic Neck: Normal Inspection Respiratory/Chest: No Respiratory Distress, Lungs Clear, Normal Breath Sounds, No Accessory Muscle Use, Chest Non-Tender Cardiovascular: Normal Peripheral Pulses, Regular Rate, Rhythm, No Edema, No Murmur GI/Abdominal: Normal Bowel Sounds, Soft, Non-Tender, No Distention (Female) Exam: Deferred Rectal (Female) Exam: Deferred Back Exam: Normal Inspection, Full Range of Motion. No: CVA Tenderness (L), CVA Tenderness (R), Vertebral Tenderness Extremities: Normal Inspection, Normal Range of Motion, Non-Tender, No Pedal Edema, Normal Capillary Refill Neurological: Alert, Oriented, Normal Cognition Psychiatric: Normal Affect, Normal Mood Skin Exam: Warm, Dry, Intact, Normal Color, No Rash Lymphatic: No Adenopathy Course - Vital Signs Text/Narrative:: 50-year-old female with gradual onset right flank pain that started this morning. She does not have a history of renal colic. No fever, chills, nausea or vomiting however she does have a history of diarrhea due to IBS D. Denies any frequency, urgency, hesitancy or burning with voiding. She does however has had a history of gout for which she takes allopurinol. She states she drinks several caffeinated sodas throughout the day and does not drink much water. I suspect she has right renal colic so I have ordered IV fluids 1 L wide open, Dilaudid, Zofran, labs, urinalysis and a CT abdomen and pelvis without contrast to rule out kidney stone. Last Recorded V/S: Last Vital Signs Temp 98 F 06/26/20 13:22 Pulse 96 06/26/20 13:22 Resp 24 H 06/26/20 13:22 BP 182/89 H 06/26/20 13:22 Pulse Ox 98 06/26/20 13:22 - Orders/Labs/Meds Orders: Active Orders 24 hr Category Date Time Status Strain Urine [RC] STAT Care 06/26/20 13:30 Active Sodium Chloride 0.9% [Saline Flush] Med 06/26/20 13:57 Active 10 ml FLUSH ASDIRECTED PRN Saline Lock Insert [OM.PC] Stat Oth 06/26/20 13:57 Ordered Medication Orders Sodium Chloride (Sodium Chloride 0.9% 10 Ml Syringe) 10 ml FLUSH ASDIRECTED PRN PRN Reason: Keep Vein Open Last Admin: 06/26/20 14:17 Dose: 10 ml Documented by: SUSHIL Labs: Laboratory Tests 06/26/20 06/26/20 06/26/20 Range/Units 14:01 14:01 14:03 WBC 8.37 (3.98-10.04) K/mm3 RBC 4.72 (3.98-5.22) M/mm3 Hgb 13.2 (11.2-15.7) gm/dl Hct 41.1 (34.1-44.9) % MCV 87.1 (79.4-94.8) fl MCH 28.0 (25.6-32.2) pg MCHC 32.1 L (32.2-35.5) g/dl RDW Std Deviation 40.0 (36.4-46.3) fL Plt Count 287 (182-369) K/mm3 MPV 9.6 (9.4-12.3) fl Neut % (Auto) 69.1 (34.0-71.1) % Lymph % (Auto) 20.7 (19.3-51.7) % [place] % (Auto) 7.3 (4.7-12.5) % Eos % (Auto) 2.3 (0.7-5.8) Baso % (Auto) 0.2 (0.1-1.2) % Neut # (Auto) 5.79 (1.56-6.13) K/mm3 Lymph # (Auto) 1.73 (1.18-3.74) K/mm3 [place] # (Auto) 0.61 H (0.24-0.36) K/mm3 Eos # (Auto) 0.19 (0.04-0.36) K/mm3 Baso # (Auto) 0.02 (0.01-0.08) K/mm3 Sodium 141 (136-145) mEq/L Potassium 3.8 (3.5-5.1) mEq/L Chloride 106 (98-107) mEq/L Carbon Dioxide 23 (21-32) mEq/L Anion Gap 15.8 H (5-15) BUN 15 (7-18) mg/dL Creatinine 1.2 H (0.55-1.02) mg/dL Est Cr Clr Drug Dosing 47.36 mL/min Estimated GFR (MDRD) 47 (>60) mL/min BUN/Creatinine Ratio 12.5 L (14-18) Glucose 128 H (74-106) mg/dL Calcium 9.1 (8.5-10.1) mg/dL Magnesium 2.2 (1.8-2.4) mg/dl Total Bilirubin 0.3 (0.2-1.0) mg/dL AST 22 (15-37) U/L ALT 34 (14-59) U/L Alkaline Phosphatase 147 H (46-116) U/L C-Reactive Protein 1.5 H* (<1.0) mg/dL Total Protein 7.5 (6.4-8.2) g/dl Albumin 3.6 (3.4-5.0) g/dl Globulin 3.9 gm/dL Albumin/Globulin Ratio 0.9 L (1-2) Urine Color Yellow (Yellow) Urine Appearance Clear (Clear) Urine pH 5.5 (5.0-8.0) Ur Specific [place] 1.025 (1.005-1.030) Urine Protein Negative (Negative) Urine Glucose (UA) Negative (Negative) Urine Ketones Negative (Negative) Urine Occult Blood 2+ H (Negative) Urine Nitrite Negative (Negative) Urine Bilirubin Negative (Negative) Urine Urobilinogen 0.2 (0.2-1.0) Ur Leukocyte Esterase Negative (Negative) U Hyaline Cast (Auto) 0-5 (0-5) /lpf Urine RBC 5-10 H (0-5) /hpf Urine WBC 0-5 (0-5) /hpf Ur Squamous Epith Cells 0-5 (0-5) /hpf Urine Bacteria Few (FEW) /hpf Urine Mucus Moderate H (FEW) /hpf Meds: Medications Generic Name Dose Route Start Last Admin Trade Name Sergei PRN Reason Stop Dose Admin Sodium Chloride 10 ml 06/26/20 13:57 06/26/20 14:17 Sodium Chloride 0.9% 10 Ml Syringe FLUSH 10 ml ASDIRECTED PRN Administration Keep Vein Open Discontinued Medications Generic Name Dose Route Start Last Admin Trade Name Sergei PRN Reason Stop Dose Admin Hydromorphone HCl 0.5 mg 06/26/20 13:58 06/26/20 14:17 Hydromorphone 0.5 Mg/0.5 Ml Syringe IVPUSH 06/26/20 13:59 0.5 mg ONETIME ONE Administration Hydromorphone HCl 0.5 mg 06/26/20 15:31 06/26/20 15:43 Hydromorphone 0.5 Mg/0.5 Ml Syringe IVPUSH 06/26/20 15:32 0.5 mg ONETIME ONE Administration Sodium Chloride 1,000 mls @ 999 mls/hr 06/26/20 13:57 06/26/20 14:16 Normal Saline IV 06/26/20 14:57 999 mls/hr ONETIME ONE Administration Ketorolac Tromethamine 30 mg 06/26/20 16:33 06/26/20 16:39 Ketorolac 30 Mg/Ml Sdv IVPUSH 06/26/20 16:34 30 mg ONETIME ONE Administration Metoclopramide HCl 5 mg 06/26/20 16:46 06/26/20 16:53 Metoclopramide 10 Mg/2 Ml Sdv IVPUSH 06/26/20 16:47 5 mg ONETIME ONE Administration Ondansetron HCl 4 mg 06/26/20 13:58 06/26/20 14:17 Ondansetron 4 Mg/2 Ml Sdv IVPUSH 06/26/20 13:59 4 mg ONETIME ONE Administration Tamsulosin HCl 0.4 mg 06/26/20 15:59 06/26/20 16:16 Tamsulosin 0.4 Mg Cap.Er PO 06/26/20 16:00 0.4 mg ONETIME ONE Administration - Re-Assessments/Exams Free Text/Narrative Re-Assessment/Exam: 06/26/20 14:[address] of the abdomen and pelvis: 1. Dilated right ureter caused by 5 mm stone within the distal ureter near the UVJ. 2. Other findings which are felt to be normal. 06/26/20 16:33 Dilaudid had initially brought the patient's pain down however it is only been about an hour since her last dose and pain is returning after being up to void. I have ordered for the patient to receive 30 of Toradol IV. We will likely send her home once her pain is a little more controlled. 06/26/20 17:37 She reports feeling much better. At this time she is having no pain. She will be discharged home with a prescription for Flomax to be taken daily and Percocet 1-2 tabs every 4 hours as needed for more severe pain. She will also be sent home with a strainer for her urine. Departure - Departure Time of Disposition: 17:38 Disposition: Home, Self-Care 01 Condition: Good Clinical Impression: Kidney stone on right side - Discharge Information Prescriptions: Tamsulosin HCl [Flomax] 0.4 mg PO DAILY #10 cap.er.24h Tamsulosin HCl [Flomax] 0.4 mg PO DAILY #10 cap.er.24h oxyCODONE HCl/Acetaminophen [Percocet 5-325 mg Tablet] 1 each PO Q4H #20 tablet oxyCODONE HCl/Acetaminophen [Percocet 5-325 mg Tablet] 1 each PO Q4H #20 tablet Referrals: Ashley Goználes MD [Primary Care Provider] - Forms: ED Department Discharge Additional Instructions: You were seen in the emergency department today with complaints of right flank pain. Labs, urinalysis and a CT scan were completed and these did indicate that you do have a kidney stone in your right ureter. It is just at the end of the ureter before the bladder. It is likely you will pass the stone in the next 2 to 3 days. You are given IV fluids and pain medication and these did seem to help. Treatment for this is to go home and rest, drink plenty of water and stay away from any sodas or carbonated beverages. You can take Percocet 1-2 tabs every 4 hours as needed for more severe pain. This is a narcotic however so you should not be driving or operating heavy machinery while taking this. Keep in mind if you are taking this every 4 hours it can cause constipation so you should take a stool softener along with it. You may also take ibuprofen 600 mg every 6 hours for lesser pain. You will need to take Flomax 1 tab daily. This medication has been shown to dilate your ureters to help the stone pass. Strain all of your urine as you should be able to tell when the stone passes. If you are still quite uncomfortable in the next 3 to 5 days, you will need to follow- up with your primary care physician or return to the emergency department. Sepsis Event Note (ED) - Evaluation Sepsis Screening Result: No Definite Risk - Focused Exam Vital Signs: Vital Signs Temp Pulse Resp BP Pulse Ox 06/26/20 13:22 98 F 96 24 H 182/89 H 98 - My Orders Last 24 Hours: My Active Orders 06/26/20 13:30 Strain Urine [RC] STAT 06/26/20 13:57 Sodium Chloride 0.9% [Saline Flush] 10 ml FLUSH ASDIRECTED PRN Saline Lock Insert [OM.PC] Stat - Assessment/Plan Last 24 Hours: My Active Orders 06/26/20 13:30 Strain Urine [RC] STAT 06/26/20 13:57 Sodium Chloride 0.9% [Saline Flush] 10 ml FLUSH ASDIRECTED PRN Saline Lock Insert [OM.PC] Stat
[2020-06-26] MEDS ORDERED: Tamsulosin 0.4 MG Cap.ER PO ONE (15:59)
[2020-06-26] MEDS ORDERED: Ketorolac 30 MG/ML SDV IVPUSH ONE (16:33)
[2020-06-26] MEDS ORDERED: Metoclopramide 10 MG/2 ML SDV IVPUSH ONE (16:46)
[2020-06-26 19:21] VITALS: BP 155/71; PULSE 74
== END 2020-06-26 18:34 | disposition home or self-care (01) ==
LOC: JD.ED 13:15
DX: N20.2 Calculus of kidney with calculus of ureter (principal); M10.9 Gout, unspecified; Z88.2 Allergy status to sulfonamides; Z88.1 Allergy status to other antibiotic agents; Z79.899 Other long term (current) drug therapy
CPT/HCPCS: 36415; 74176; 80053; 81001; 83735; 85025; 86140; 96374; 96375; 96376; 99284; A9270; J1170; J1885; J2405; J2765; J7030

== ENCOUNTER 2021-04-14 20:55 | Emergency (ER) | payer OTHER ==
[2021-04-14 21:38] VITALS: BP 146/75; PULSE 83
[2021-04-14] MEDS ORDERED: Albuterol 6.7 GM Inhaler INH ONE (21:53)
[2021-04-14] MEDS ORDERED: Dexamethasone 6 MG TABLET PO ONE (23:36)
== END 2021-04-15 00:47 | disposition home or self-care (01) ==
LOC: JD.ED 20:55
DX: U07.1 COVID-19 (principal); Z88.0 Allergy status to penicillin; Z88.1 Allergy status to other antibiotic agents; Z88.2 Allergy status to sulfonamides
CPT/HCPCS: 71045; 94640; 99283; A9270; J8540

== ENCOUNTER 2021-04-26 17:06 | Emergency (ER) | payer OTHER ==
[2021-04-26] MEDS ORDERED: Sodium Chloride 0.9% 10 ML Syringe FLUSH PRN (17:19)
[2021-04-26 20:16] VITALS: BP 156/69; PULSE 59
== END 2021-04-26 20:17 | disposition home or self-care (01) ==
LOC: JD.ED 17:06
DX: R07.89 Other chest pain (principal); M10.9 Gout, unspecified; Z88.2 Allergy status to sulfonamides; Z88.0 Allergy status to penicillin; Z88.1 Allergy status to other antibiotic agents; Z79.899 Other long term (current) drug therapy
CPT/HCPCS: 36415; 71045; 71045-26; 80053; 83735; 84484; 85025; 85610; 85730; 93005; 93010; 99285; 99285-25